=== PATIENT | female | born 1935 | race Caucasian/White ===

== ENCOUNTER 2017-07-24 13:48 | Inpatient (IN) | payer MEDICARE, BC ==
[~2017-07-24] VITALS: Ht 152.4 cm; Wt 64.4 kg
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
[2017-07-24] MEDS ORDERED: HYDROCODONE/APAP 5/325MG 1 EACH TABLET PO ONE (14:30)
[2017-07-24] MEDS ORDERED: HYDROCODONE/APAP 5/325MG 1 EACH TABLET ONE (14:35)
--- NOTE | 2017-07-24 14:40 | NUR ---
PATIENT MEDICATED PER MD ORDERS.
[2017-07-24 15:03] LABS: BASOPHILS % (AUTO) 0.2 % (0.0-2.0); EOSINOPHILS % (AUTO) 0.2 % (0.0-6.0); HEMATOCRIT 35 % (33-45); HEMOGLOBIN 11.8 g/dL (11.5-14.8); LYMPHOCYTES # (AUTO) 0.4 /CMM (0.8-4.8); LYMPHOCYTES % (AUTO) 4.7 % (20.0-44.0); MEAN CORPUSCULAR HGB CONC 34 g/dl (31.0-36.0); MEAN CORPUSCULAR VOLUME 84 fL (82-100); MONOCYTES # (AUTO) 0.4 /CMM (0.1-1.30); NEUTROPHILS # (AUTO) 8.4 /CMM (1.8-8.9); NEUTROPHILS % (AUTO) 90.9 % (43.0-81.0); PLATELET COUNT (AUTO) 160 /CMM (150-450); RDW COEFFICIENT OF VARIATION 15.1 (11.5-15.0); RED BLOOD CELL COUNT(AUTO) 4.16 MIL/uL (4.0-5.2); WHITE BLOOD COUNT (AUTO) 9.2 K/uL (4.3-11.0)
[2017-07-24 15:11] LABS: CALCIUM, SERUM 9.5 mg/dL (8.5-10.1); CARBON DIOXIDE 27 mmol/L (21-32); CHLORIDE 101 mmol/L (98-107); GLUCOSE 188 mg/dL (74-106); POTASSIUM 3.7 mmol/L (3.5-5.1); SODIUM SERUM 135 mmol/L (136-145); UREA NITROGEN, BLOOD 31 mg/dL (7-18)
[2017-07-24 15:14] LABS: INR 0.99 (0.85-1.15)
[2017-07-24 15:16] LABS: ALANINE AMINOTRANSFERASE 24 U/L (12-78); ALBUMIN 3.2 g/dL (3.4-5.0); ALKALINE PHOSPHATASE 65 U/L (46-116); ASPARTATE AMINOTRANSFERASE 21 U/L (15-37); BILIRUBIN,DIRECT 0.1 mg/dL (0.0-0.2); BILIRUBIN,TOTAL 0.5 mg/dL (0.2-1.0); TOTAL PROTEIN, SERUM 7.9 g/dL (6.4-8.2)
[2017-07-24] MEDS ORDERED: IOHEXOL-350 100 ML VIAL IV ONE (15:25)
--- NOTE | 2017-07-24 15:29 | NUR ---
NEW IV STARTED ON LAC, 20G.
[2017-07-24] MEDS ORDERED: IV NS 0.9% 500 ML BAG IV ONE (15:30)
--- NOTE | 2017-07-24 15:32 | NUR ---
PATIENT TAKEN TO CT VIA STRETCHER.
--- NOTE | 2017-07-24 16:00 | NUR ---
PATIENT RETURNED FROM CT IN STABLE CONDITION.
--- NOTE | 2017-07-24 17:11 | NUR ---
CALLED [employer] PRODUCTION ARTIST WAS PAGED.
--- NOTE | 2017-07-24 17:15 | NUR ---
REPORT GIVEN TO THERESE AARON FOR TIFF UPON ADMISSION.
[2017-07-24] MEDS ORDERED: VALS1TAB52 PO (17:17)
[2017-07-24] MEDS ORDERED: ASCO500T9 PO (17:17)
[2017-07-24] MEDS ORDERED: OXYM15MI4 BNOSTRILS (17:17)
[2017-07-24] MEDS ORDERED: FERR325T23 PO (17:17)
[2017-07-24] MEDS ORDERED: CALC600T12 PO (17:17)
[2017-07-24] MEDS ORDERED: CHOL100044 PO (17:17)
[2017-07-24] MEDS ORDERED: PRAV10TA40 PO (17:17)
[2017-07-24] MEDS ORDERED: LOSA50TA21 PO (17:17)
[2017-07-24] MEDS ORDERED: OMEP20CA10 PO (17:17)
[2017-07-24] MEDS ORDERED: FENTANYL PF 100MCG/2ML AMPUL ONE (17:18)
[2017-07-24] MEDS ORDERED: FENTANYL PF 100MCG/2ML AMPUL IV ONE (17:30)
--- NOTE | 2017-07-24 17:40 | NUR ---
PATIENT TRANSPORTED TO 202 VIA STRETCHER. RNTHERESE TO PROVIDE TIFF.
[2017-07-24] MEDS ORDERED: HYDROCODONE/APAP 5/325MG 1 EACH TABLET PO PRN (18:00)
[2017-07-24] MEDS ORDERED: Z GUARD REMEDY 2 OZ OINT TP PRN (18:00)
[2017-07-24] MEDS ORDERED: MORPHINE SULFATE INJ 4 MG/ML DISP.SYRIN IV PRN (18:00)
[2017-07-24] MEDS ORDERED: ACETAMINOPHEN 325 MG TABLET PO PRN (18:00)
[2017-07-24] MEDS ORDERED: ZOLPIDEM TARTRATE 5 MG TABLET PO PRN (18:00)
[2017-07-24] MEDS ORDERED: ONDANSETRON HCL/PF 4 MG/2 ML VIAL IVP PRN (18:00)
--- NOTE | 2017-07-24 18:09 | NUR ---
MS ADMIT FROM ER AFTER REPORT RECEIVED. PATIENT ORIENTED TO PRIMARY RN, UNIT, ROOM, BED, AND UNIT POLICIES REGARDING PATIENT CARE AND VISITING HOURS. PATIENT WEIGHED BY BEDSCALE AND ENCOURAGED TO CALL IF THEY NEED ANYTHING. ALL QUESTIONS AND CONCERNS ADDRESSED. PATIENT VERBALIZED UNDERSTANDING.
--- NOTE | 2017-07-24 18:56 | NUR ---
CHANGE OF SHIFT REPORT PT RESTING COMFORTABLY IN BED. NO S/S OR C/O PAIN OR DISTRESS NOTED. SIDE RAILS UP X2, CALL LIGHT LEFT WITHIN REACH. PT KEPT CLEAN, DRY, AND COMFORTABLE. NO SIGNIFICANT CHANGES SINCE ADMISSION. WILL GIVE REPORT TO JULIAN AARON.
--- NOTE | 2017-07-24 19:30 | NUR ---
MS RN OPENING NOTES: PATIENT IN BED, AOX4, ON ROOM AIR, BREATHING EVEN AND UNLABORED. APPEARS CALM, BUT STATES THAT SHE HAS PAIN OVER HER CHEST AND BACK SCALED AT 4-5/10 WHENEVER SHE MOVES IN BED, BUT STATES THAT SHE HAS FELT MUCH RELIEF NOW. . NOTED BRUISES OVER HER NECK. R FOREARM HAS CLEAN AND INTACT DRESSING. PIV OVER RFA G 22 INTACT AND INFUSING WELL WITH NS RUNNING AT 125 ML/HR. POSITIONED FOR COMFORT, BED IN LOWEST AND LOCKED POSITION, SIDERAILS UP X 3, CALL LIGHT WITHIN REACH. WILL CONT TO MONITOR.
[2017-07-24 20:00] VITALS: BP 122/50
[2017-07-24] MEDS: ENOXAPARIN SODIUM 40 MG/0.4 ML DISP.SYRIN SQ SCH (20:09)
[2017-07-24] MEDS: ATORVASTATIN 10 MG TABLET PO SCH (21:51)
--- NOTE | 2017-07-24 22:00 | NUR ---
RN NOTES: PATIENT STATES THAT SHE HAS FREQUENCY OF URINATION (CHRONIC), AND HAD TROUBLE WITH THE USE OF BEDPAN DUE TO HER BACK PAIN. SPOKE TO DR CAST, ORDER GIVEN FOR MOLINA CATHETER INSERTION. NOTED AND CARRIED OUT. MOLINA CATHETER FR 16 WAS INSERTED USING STERILE TECHNIQUE.
--- NOTE | 2017-07-24 23:26 | NUR ---
RN NOTES: PATIENT COMPLAINED OF 5/10 PAIN OVER HER NECK, CHEST AND BACK. ADMINISTERED NORCO 5-325 MG PO. WILL CONT TO MONITOR.
[2017-07-25 06:04] LABS: BASOPHILS % (AUTO) 0.2 % (0.0-2.0); EOSINOPHILS % (AUTO) 1.1 % (0.0-6.0); HEMATOCRIT 31 % (33-45); HEMOGLOBIN 10.4 g/dL (11.5-14.8); LYMPHOCYTES # (AUTO) 0.5 /CMM (0.8-4.8); LYMPHOCYTES % (AUTO) 10.1 % (20.0-44.0); MEAN CORPUSCULAR HGB CONC 34 g/dl (31.0-36.0); MEAN CORPUSCULAR VOLUME 85 fL (82-100); MONOCYTES # (AUTO) 0.3 /CMM (0.1-1.30); MONOCYTES % (AUTO) 6.4 % (2.0-12.0); NEUTROPHILS # (AUTO) 3.9 /CMM (1.8-8.9); NEUTROPHILS % (AUTO) 82.2 % (43.0-81.0); PLATELET COUNT (AUTO) 130 /CMM (150-450); RDW COEFFICIENT OF VARIATION 16.1 (11.5-15.0); RED BLOOD CELL COUNT(AUTO) 3.66 MIL/uL (4.0-5.2); WHITE BLOOD COUNT (AUTO) 4.8 K/uL (4.3-11.0)
[2017-07-25 06:25] LABS: CALCIUM, SERUM 9.1 mg/dL (8.5-10.1); CARBON DIOXIDE 29 mmol/L (21-32); CHLORIDE 105 mmol/L (98-107); CREATININE 0.9 mg/dL (0.6-1.3); GLUCOSE 133 mg/dL (74-106); MAGNESIUM 2.1 mg/dL (1.8-2.4); POTASSIUM 3.9 mmol/L (3.5-5.1); SODIUM SERUM 140 mmol/L (136-145); UREA NITROGEN, BLOOD 19 mg/dL (7-18)
[2017-07-25 06:33] LABS: CHOLESTEROL 109 mg/dL (<200); HDL CHOLESTEROL 42 mg/dL (40-60); LDL 54 mg/dL (0-99); THYROID STIMULATING HORMONE 6.357 uIU/mL (0.358-3.74); TRIGLYCERIDES 133 mg/dL (30-150)
--- NOTE | 2017-07-25 06:35 | NUR ---
MS RN CLOSING NOTES: PATIENT IN BED, AOX4, ON ROOM AIR, BREATHING EVEN AND UNLABORED. APPEARS CALM BUT STILL COMPLAINS OF MILD BACK AND CHEST PAIN WHEN BEING MOVED. PROVIDED FOR COMFORT AND SAFETY. PIV OVER LAC G20, INTACT AND PATENT TO FLUSH. BED IN LOWEST AND LOCKED POSITION. NO ACUTE CHANGE IN CONDITION NOTED. WILL ENDORSE TO AM RN FOR TIFF.
--- NOTE | 2017-07-25 06:42 | NUR ---
TEXTED DR. CONN FOR MRI APPROVAL.
--- NOTE | 2017-07-25 07:00 | NUR ---
REPORT RECEIVED AT THE BEDSIDE. PATIENT IS RESTING COMFORTABLY IN BED. NO SOB OR DISTRESS NOTED AT THIS TIME. PATIENT REPORTS 8/10 PAIN IN THE NECK AND BACK. WILL FOLLOW UP WITH PAIN MEDICATION. BED IN A LOW POSITION, CALL LIGHT WITHIN PATIENT REACH. WILL CONTINUE TO MONITOR.
[2017-07-25] MEDS: HYDROCODONE/APAP 10/325MG 1 EA TABLET PO PRN ×3 (07:33→19:56)
[2017-07-25] MEDS: ASCORBIC ACID 500 MG TABLET PO SCH (08:11)
[2017-07-25] MEDS: FERROUS SULFATE (325 MG) 325 MG/TAB TABLET PO SCH ×2 (08:11→17:09)
[2017-07-25] MEDS: LOSARTAN POTASSIUM 50 MG TABLET PO SCH (08:11)
[2017-07-25 08:26] VITALS: BP 123/59
[2017-07-25] MEDS ORDERED: CHOLECALCIFEROL 1,000 UNIT TABLET (VIT D3) PO SCH (09:00)
--- NOTE | 2017-07-25 09:52 | NUR ---
CALLED [place] [facility] TO DR SHAH. LEFT A MESSAGE TO VERIFY THAT THE PHYSICIAN RECEIVED THE CONSULT FOR THE PATIENT. AWAITING RETURN CALL.
--- NOTE | 2017-07-25 10:28 | NUR ---
WOUND CARE CONSULT: LIMITED ASSESSMENT TODAY DUE TO PT REFUSAL TO CHANGE POSITION. PT PRESENTS WITH RT ARM SKIN TEAR, PRESENT ON ADMISSION. RECOMMENDATIONS MADE FOR WOUND CARE AND SKIN PROTECTION. DISCUSSED WITH NURSING STAFF. WILL SEE PRN. AGUIRRE IN AGREEMENT WITH PLAN OF CARE. CURRENT JOHNATHAN SCORE IS 15. Addendum: 07/25/17 at 1030 by KIKI MONTERROSO WNDNU Amended: Links added.
--- NOTE | 2017-07-25 10:36 | NUR ---
PT TAKEN DOWN FOR MRI.
--- NOTE | 2017-07-25 11:10 | NUR ---
DR ANGULO ON FLOOR. INFORMED DR ANGULO THAT AN ATTEMPT WAS MADE TO REACH DR SHAH, BUT NO RETURN CALL HAD BEEN RECEIVED. DR ANGULO STATES "I WILL FOLLOW UP WITH HIM."
--- NOTE | 2017-07-25 12:30 | NUR ---
PT RETURNED FROM MRI. STATES 12/10 PAIN. WILL ADMIN PRN MORPHINE.
--- NOTE | 2017-07-25 14:49 | NUR ---
CALLED DR SHAH'S DRUG SAFETY PHYSICIAN, JIMMY, AGAIN. SPOKE WITH JIMMY OVER THE PHONE AND RELAYED THE PATIENT INFORMATION AND TEST PREFORMED SO FAR. JIMMY STATES THAT HE WILL ATTEMPT TO STOP BY TODAY AND SEE THE PATIENT.
[2017-07-25] MEDS: MAG HYDROX/AL HYDROX/SIMETH 30 ML UDC PO PRN (15:08)
--- NOTE | 2017-07-25 15:30 | NUR ---
RECEIVED A CALL FROM DR ANGULO. STATES TO HAVE PT PLACED IN CERVICAL COLLAR UNTIL CLEARED BY DR SHAH. CALLED [facility] AND LEFT A MESSAGE WITH THE ORDER.
--- NOTE | 2017-07-25 15:54 | NUR ---
CALLED DR ANGULO TO ASK ABOUT SLIDING SCALE INSULIN WRITTEN IN HIS NOTES. WAITING FOR RETURN CALL FROM .
[2017-07-25 16:35] VITALS: BP 117/54
--- NOTE | 2017-07-25 17:11 | NUR ---
PT PLACED ON C COLLAR PER MD ORDER.
--- NOTE | 2017-07-25 18:13 | NUR ---
RECEIVED RETURN CALL FROM DR ANGULO. STATES TO START PT ON MILD SLIDING SCALE INSULIN. STATES TO START AT HS PATIENT HAS ALREADY EATEN DINNER.
[2017-07-25] MEDS ORDERED: DEXTROSE 50%-WATER 50 ML DISP.SYRIN IV PRN (18:30)
--- NOTE | 2017-07-25 18:52 | NUR ---
NO SIGNIFICANT CHANGES IN PATIENT CONDITION THROUGHOUT THE SHIFT. NO SOB OR DISTRESS NOTED AT THIS TIME. PATIENT REPORTS TOLERABLE PAIN AT THIS TIME. PATIENT HAS C COLLAR IN PLACE AND MOLINA IN PLACE AND DRAINING CLEAR YELLOW URINE. BED IN A LOW POSITION, CALL LIGHT WITHIN PATIENT REACH. WILL ENDORSE FOR TIFF.
--- NOTE | 2017-07-25 20:02 | NUR ---
RN NOTES RECEIVED PATIENT IN BED, ALERT AND ORIENTED X4, SPO2 SATURATION 88%, PUT ON 3LPM VIA NC, SPO2 95%, COMPLAINING OF DISCOMFORT AND PAIN OF 7/10 TO BACK AND NECK, GIVEN NORCO 10/325, CERVICAL COLLAR ON AT ALL TIMES, REPOSITIONED TO LEFT SIDE, MOLINA CATHETER DRAINING WELL OF CLEAR AND YELLOW URINE. KEPT COMFORTABLE, CALL LIGHT WITHIN REACH.
[2017-07-25 20:12] VITALS: BP 107/55
[2017-07-25 20:19] VITALS: BP 107/55
[2017-07-25] MEDS: ATORVASTATIN 10 MG TABLET PO SCH (21:24)
[2017-07-25] MEDS: BLOOD SUGAR DIAGNOSTIC 1 EACH STRIP IN SCH (21:24)
[2017-07-25] MEDS: ENOXAPARIN SODIUM 40 MG/0.4 ML DISP.SYRIN SQ SCH (21:28)
[2017-07-25] MEDS: INSULIN REGULAR, HUMAN 100 UNIT/ML 3 ML VIAL SQ PRN (21:32)
[2017-07-26] MEDS: HYDROCODONE/APAP 10/325MG 1 EA TABLET PO PRN ×4 (02:51→16:21)
[2017-07-26] MEDS: BLOOD SUGAR DIAGNOSTIC 1 EACH STRIP IN SCH ×4 (06:16→21:50)
[2017-07-26] MEDS: INSULIN REGULAR, HUMAN 100 UNIT/ML 3 ML VIAL SQ PRN ×4 (06:22→21:58)
--- NOTE | 2017-07-26 06:37 | NUR ---
RN NOTES PATIENT IS ALERT AND AWAKE, NO DISTRESS, NO SOB, CERVICAL COLLAR IS ON, REPOSITIONED SIDE TO SIDE AND SUPINE, PROVIDED PAIN MEDICATION PRN, MOLINA CATHETER DRAINING WELL, PROVIDED FLUIDS DURING SHIFT. NEEDS ATTENDED, CALL LIGHT WITHIN REACH.
--- NOTE | 2017-07-26 07:32 | NUR ---
MS RN OPENING NOTES RECEIVED PT LAYING IN BED WITH HOB SLIGHTLY ELEVATED. AWAKE AND RESPONSIVE. RESPIRATIONS ARE EVEN AND UNLABORED, NOT IN ANY ACUTE DISTRESS NOTED. CERVICAL COLLAR IS ON CORRECTLY. PT STATES SHE DENIES ANY PAIN AT THIS TIME. PT IS ABLE TO WIGGLE TOES AND PERFORM SLOW AROM TO BUE. BILATERAL HAND TOYS AND GAMES HAND FINISHER ARE STRONG AND EQUAL. NO C/O SOB, N/V. SAFETY MEASURES ARE IN PLACE. CALL LIGHT IS LEFT WITHIN REACH. WILL CONTINUE TO MONITOR THROUGHOUT SHIFT FOR CONTINUITY OF CARE.
[2017-07-26 08:00] VITALS: BP 119/52
[2017-07-26] MEDS: LOSARTAN POTASSIUM 50 MG TABLET PO SCH (08:27)
[2017-07-26] MEDS: ASCORBIC ACID 500 MG TABLET PO SCH (08:27)
[2017-07-26] MEDS: FERROUS SULFATE (325 MG) 325 MG/TAB TABLET PO SCH ×2 (08:27→16:21)
--- NOTE | 2017-07-26 10:18 | NUR ---
MS RN NOTES PT SEEN AND EXAMINED BY DR. ADELE SUTTON. AT BEDSIDE. BOTH PT AND ARE AWARE THAT PT NEEDS TO BE EVALUATED BY DR. SHAH. PT IS NOT IN ANY APPARENT DISTRESS AT THIS TIME.
--- NOTE | 2017-07-26 10:32 | NUR ---
MS RN NOTES LEFT MESSAGE TO DR. SHAH'S OFFICE. AWAITING A CALL BACK.
--- NOTE | 2017-07-26 14:28 | NUR ---
MS RN NOTES CALLED [facility] RE: TLSO BRACE AND SINCE THEY DO NOT CARRY IT, A [employer]OND [employer] NEEDS TO BE CONTACTED NAMED [facility] [phone]. PER KIKI FROM [facility], WILL SEND SOMEONE OUT TO FIT THE PT FOR THE BRACE. PT MADE AWARE AND AGREED.
--- NOTE | 2017-07-26 15:06 | NUR ---
MS RN NOTES RECEIVED A CALL FROM [facility], AND WILL COME IN THIS AFTERNOON TO SEE THE PATIENT FOR BRACE FITTING. PT AND FAMILY AWARE AT BEDSIDE.
[2017-07-26 16:00] VITALS: BP 117/65
--- NOTE | 2017-07-26 16:19 | NUR ---
MS RN NOTES CALLED DR. SHAH AND STATED "I WILL TALK TO DR. ANGULO."
[2017-07-26] MEDS: MAG HYDROX/AL HYDROX/SIMETH 30 ML UDC PO PRN (17:13)
--- NOTE | 2017-07-26 17:52 | NUR ---
MS RN NOTE RECEIVED A CALL FROM DR. SHAH'S GLASS FURNACE TENDER, JIMMY. PER JIMMY, HE WILL CONTACT HOSPITALIST. PT MADE AWARE. PT ALSO FITTED FOR TLSO BRACE.
--- NOTE | 2017-07-26 18:53 | NUR ---
MS RN CLOSING NOTES ALL DUE MEDS GIVEN, NEEDS MET AND RENDERED. A/O X4, AFEBRILE. RESPIRATIONS ARE EVEN AND UNLABORED, NOT IN ANY ACUTE DISTRESS NOTED. NO C/O SOB, CHEST PAIN, N/V. PAIN MEDICATION IS NOTED TO BE EFFECTIVE, PER PT. IV SITE INTACT, NO INFILTRATION NOTED. DRESSING KEPT CLEAN AND DRY. SAFETY MEASURES ARE IN PLACE. CALL LIGHT IS LEFT WITHIN REACH. WILL ENDORSE TO NEXT SHIFT FOR CONTINUITY OF CARE.
--- NOTE | 2017-07-26 19:30 | NUR ---
MS/RN OPENING NOTES PT RECEIVED ASLEEP IN BED. AROUSABLE TO NAME. A/OX4. ON 3L O2 VIA NC, BREATHING EVEN AND UNLABORED. DENIES SOB, NO S/S OF DISTRESS NOTED. PAIN NOTED AT TOLERABLE LEVEL AT THIS TIME. IV TO LAC PATENT AND INTACT. CERVICAL COLLAR ON. TLSO BRACE AT BEDSIDE. BED IN LOW/LOCKED POSITION, HOB SLIGHTLY ELEVATED. CALL LIGHT IN REACH. SIDE RAILS UPX2. WILL CONTINUE TO MONITOR
[2017-07-26 19:57] VITALS: BP 108/54
--- NOTE | 2017-07-26 20:50 | NUR ---
MS/RN NOTES RECEIVED CALL FROM GRISEL FROM [facility] PATIENT TRANSFER CENTER REGARDING TRANSFER TONIGHT PER DR. SHAH'S REQUEST. DR. ADITYA ISAACS IS ACCEPTING THE PATIENT. PHONE # [phone], FAX # [phone] Addendum: 07/27/17 at 0707 by ASHWINI CARRASQUILLO RN GRISEL TO ARRANGE TRANSPORT
--- NOTE | 2017-07-26 20:55 | NUR ---
MS/RN NOTES DR. CAST MADE AWARE OF TRANSFER. MD BECKER TO TRANSFER.
[2017-07-26] MEDS: MAGNESIUM HYDROXIDE 30 ML UDC PO PRN (21:50)
[2017-07-26] MEDS: ATORVASTATIN 10 MG TABLET PO SCH (21:50)
[2017-07-26] MEDS: ENOXAPARIN SODIUM 40 MG/0.4 ML DISP.SYRIN SQ SCH (21:50)
--- NOTE | 2017-07-26 22:03 | NUR ---
MS/RN NOTES PT C/O NO BM SINCE FRIDAY. REQUESTING LAXATIVE. ADMINISTERED PRN MILK OF MAGNESIA AND PRUNE JUICE PROVIDED.
--- NOTE | 2017-07-26 22:15 | NUR ---
MS/RN NOTES FOLLOWED UP WITH GRISEL, NO BEDS AVAILABLE AT THIS TIME. PLAN TO TRANSFER PT TOMORROW AFTERNOON. PT AND FAMILY UPDATED AND MADE AWARE OF PLAN OF CARE. DR. CAST, RELOCATION MANAGER AND INSTRUMENT [employer]CH[employer]IC [employer] ALL AWARE.
[2017-07-27] MEDS: HYDROCODONE/APAP 10/325MG 1 EA TABLET PO PRN ×3 (02:36→14:23)
--- NOTE | 2017-07-27 02:37 | NUR ---
MS/RN NOTES PT C/O BACK PAIN, ADMINISTERED PRN NORCO 10 ORDERED. WILL MONITOR FOR EFFECTIVENESS
[2017-07-27] MEDS: BLOOD SUGAR DIAGNOSTIC 1 EACH STRIP IN SCH ×2 (06:20→13:40)
[2017-07-27] MEDS: INSULIN REGULAR, HUMAN 100 UNIT/ML 3 ML VIAL SQ PRN ×2 (06:21→13:54)
--- NOTE | 2017-07-27 06:59 | NUR ---
MS/RN CLOSING NOTES PT ASLEEP, AROUSABLE TO NAME. REMAINS ON 3L O2 VIA NC, BREATHING EVEN AND UNLABORED. DENIES SOB, PAIN AT A TOLERABLE LEVEL AT THIS TIME. IV TO LAC PATENT AND INTACT. MOLINA IN PLACE AND DRAINING TO GRAVITY. PT GIVEN PRUNE JUICE AND MOM DURING SHIFT. NO BM YET BUT PT STATES SHE FEELS IT IS WORKING. PLAN TO TRANSFER PT TO [facility] THIS AFTERNOON PER REQUEST OF DR. SHAH. PT AND FAMILY AWARE. NO CALL FROM [facility] RE: BED/ROOM #. TURNED/REPOSITIONED PT Q2H VIA LOG ROLL. CERVICAL COLLAR REMAINED IN PLACE THROUGHOUT SHIFT. ALL NEEDS MET. KEPT PT COMFORTABLE POSSIBLE DURING SHIFT. BED REMAINS IN LOW/LOCKED POSITION WITH CALL LIGHT IN REACH. SIDE RAILS UPX2. WILL ENDORSE TO DAY SHIFT RN TIFF.
[2017-07-27 08:00] VITALS: BP 103/46
--- NOTE | 2017-07-27 08:00 | NUR ---
RN NOTES RECEIVED PATIENT IN THE BED A/O X3. PATIENT ON O2-2L NC. PATIENT HAS NO RESPIRATORY DISTRESS. PATIENT ON CERVICAL COLLER FOR C5-C6 FRACTURE. MEDICATION WERE ADMINISTERED FOR PAIN EFFECTIVE, PATIENT MULTIPLE BRUISES, AN SKIN TEAR ON RIGHT ARM, DRESSING CHANGED. SCHEDULED MEDICATION ADMINISTERED, V/S TAKEN STABLE. ASSIST PATIENT TURN AND REPOSTION Q 2 HR TOLERATED. F/C DRAIN LIGHT YELLOW OUTPUT. CALL LIGHT WITHIN TO REACH. CONTINUED MONITORING.
[2017-07-27] MEDS: FERROUS SULFATE (325 MG) 325 MG/TAB TABLET PO SCH (09:52)
[2017-07-27] MEDS: ASCORBIC ACID 500 MG TABLET PO SCH (09:52)
[2017-07-27] MEDS: LOSARTAN POTASSIUM 50 MG TABLET PO SCH (09:53)
[2017-07-27] MEDS: MAGNESIUM HYDROXIDE 30 ML UDC PO PRN (10:02)
--- NOTE | 2017-07-27 10:02 | NUR ---
RN NOTES ADMINISTERED MILK OF MAGNESIA 30 MG/ ML PO PRN FOR CONSTIPATION. ENCOURAGED TO INCREASE FLUID INTAKE TOLERATED. CONTINUED MONITORING.
[2017-07-27] MEDS ORDERED: HYDR-3972 PO (11:22)
[2017-07-27] MEDS ORDERED: Morphine Sulfate Inj IV (11:22)
[2017-07-27] MEDS ORDERED: ENOX40DI SQ (11:22)
[2017-07-27] MEDS ORDERED: Hydrocodone/Apap 10/325MG PO (11:22)
[2017-07-27] MEDS: MAG HYDROX/AL HYDROX/SIMETH 30 ML UDC PO PRN (13:40)
--- NOTE | 2017-07-27 14:22 | NUR ---
RECEIVED CALL FROM KALPESH MARADIAGA [facility], BED IS AVAILABLE AND PT WILL GO TO RM [id number], NURSE TO GIVE REPORT TO [phone] [phone]. ARRANGED TRANSPORTATION VIA [facility] TRIP#: [id number]. Addendum: 07/27/17 at 1423 by LARRY CABA CMG Amended: Links added.
--- NOTE | 2017-07-27 14:23 | NUR ---
RN NOTES ADMINISTERED NARCO 10/325 MG PO PRN FOR GENERALIZED PAIN 09/09 PER PATIENT REQUEST, V/S TAKEN BP 130/58, P-97, CONTINUED MONITORING. MEDICATION WERE ADMINISTERED FOR STOMACHACHE EFFECTIVE. FAMILY NEXT TO THE BED. PATIENT GOING TO TRANSFER TO [facility] PER FAMILY REQUEST.
[2017-07-27 16:00] VITALS: BP 117/62
--- NOTE | 2017-07-27 17:15 | NUR ---
DISCHARGE NOTES PATIENT DISCHARGE AT THIS TIME TRANSFERRED [facility] BY DR SHAH. PATIENT A/O X3, MED COMPLIANT, V/S STABLE. MEDICATION WERE ADMINISTERED FOR PAIN EFFECTIVE . PATIENT ON O2-2L NS. F/C INTACT. IV ACCESS ON RIGHT AC AREA INTACT, ALSO HAS A CERVICAL COLLER. MED RECONCILIATION AND DISCHARGE ORDER REVIEWED AND EXPLAINED TO. REPORT GIVEN NICOLE AARON. RN VERBALIZED UNDERSTANDING. BELONGING WITH THE PATIENT . PATIENT SIGN PAPERWORK. FAMILY AWARE OF PATIENT DISCHARGE. PATIENT GRAIN TRADER BY AMBULANCE.
--- NOTE | 2017-08-01 07:20 | NUR ---
RN LATE EATERY PATIENT REFUSED PICTURE TO BE TAKEN DURING DISCHARGE, BECAUSE OF PAINFUL, AND REFUSED TO BE TOUCHED.
== END 2017-07-27 17:15 | disposition short-term general hospital (02) | DRG 552 ==
LOC: ER 13:50 → MEDSG2 17:20
DX: S22.069A Unspecified fracture of T7-T8 vertebra, initial encounter for closed fracture (principal); E11.9 Type 2 diabetes mellitus without complications; K76.89 Other specified diseases of liver; V43.62XA Car passenger injured in collision with other type car in traffic accident, initial encounter; Y92.410 Unspecified street and highway as the place of occurrence of the external cause; E78.5 Hyperlipidemia, unspecified; I10 Essential (primary) hypertension; M47.894 Other spondylosis, thoracic region; M46.04 Spinal enthesopathy, thoracic region
CPT/HCPCS: 36415; 70498-TC; 71250-TC; 72125-TC; 72128-TC; 72131-TC; 72141-TC; 72146-TC; 72148-TC; 80048-TC; 80061-TC; 80076-TC; 82962-TC; 83735-TC; 84100-TC; 84443-TC; 85025-TC; 85730-TC; 87081-TC; A4606; A6253; A6402; J1650; J1815; J2270; J2405; J3010; J7040; Q9967; Z7610